=== PATIENT | female | born 1965 | race Caucasian/White ===

== ENCOUNTER 2023-01-27 13:40 | Emergency (ER) | payer OTHER, SELFPAY ==
[2023-01-27] VITALS (12 sets, daily range): BP systolic 101–127; BP diastolic 58–71; PULSE 62–79; RESP 16–29; TEMP 36.9; O2SAT 96–100; BMI 26.6
--- NOTE | 2023-01-27 14:09 | DI.CT.S_ITS ---
PROCEDURE: CT HEAD/BRAIN WO CON INDICATIONS: Hit head, syncope in triage TECHNIQUE: Noncontrast 4.5 mm thick angled axial sections acquired from the foramen magnum to the vertex, with coronal and sagittal reformats. For radiation dose reduction, the following was used: automated exposure control, adjustment of mA and/or kV according to patient size. COMPARISON: [facility], CT, CT CERVICAL SPINE WO CON, 01/27/2023, 14:22. FINDINGS: Image quality: Mild streak artifact can be seen through the skull base. CSF spaces: Basal cisterns are patent. No extra-axial fluid collections. Ventricles are normal in size and shape. Brain: No midline shift. No intracranial masses or hemorrhage. Goldman-white matter interface is normal. Skull and face: There is a scalp hematoma seen posteriorly and on the left, as on series 2, image 22. No associated calvarial fracture can be seen. Calvarium and visualized facial bones are intact, without suspicious lesions. Sinuses: Visualized sinuses and mastoids are clear. IMPRESSION: Scalp hematoma seen posteriorly and on the left, without an associated calvarial fracture. No acute intracranial hemorrhage is seen. No acute intracranial process is seen. Dictated by: John Lopez M.D. on 01/27/2023 at 13:38 Approved by: John Lopez M.D. on 01/27/2023 at 13:39
--- NOTE | 2023-01-27 14:14 | DI.CT.S_ITS ---
PROCEDURE: CT CERVICAL SPINE WO CON INDICATIONS: mechanical fall TECHNIQUE: Noncontrast 3 mm thick sections acquired from the skull base to the T4 level. Sagittal and coronal reformats were then constructed. For radiation dose reduction, the following was used: automated exposure control, adjustment of mA and/or kV according to patient size. COMPARISON: [facility], CT, CT HEAD/BRAIN WO CON, 01/27/2023, 14:22. FINDINGS: Image quality: This examination is limited by involuntary motion artifact. Bones: No fractures or dislocations. Visualized superior ribs are intact. There is overall straightening of the normal cervical lordosis. There is moderate disc space narrowing seen at C3-C4, C4-C5, C5-C6, and C6-C7. Posteriorly directed endplate osteophytes are seen, which are most prominent at the C5-C6 level. Soft tissues: Prevertebral soft tissues are normal in thickness. No paravertebral hematomas. No apical pneumothoraces. IMPRESSION: Negative for fracture. Multiple levels of cervical spine degenerative change can be seen, which are overall worst at the C5-C6 level. Dictated by: John Lopez M.D. on 01/27/2023 at 13:39 Approved by: John Lopez M.D. on 01/27/2023 at 13:40
[2023-01-27] MEDS: ACETAMINOPHEN 325 MG TABLET 975 MG PO (15:42)
--- NOTE | 2023-01-27 18:54 | ED.FALL ---
HPI - Fall General Chief Complaint: Fall Stated Complaint: fell/head injury/numbing sensation Time Seen by Provider: 01/27/23 15:06 Source: patient Mode of arrival: Ambulatory History of Present Illness HPI Narrative: Patient healthy 57-year-old healthy female presents today after mechanical fall while playing pickleball and a closed head injury. She reports that she was wearing flip-flops she reached backwards to get the ball she tripped falling backwards hitting her head. She felt like she did whiplash she has some numbness tingling in her arms which lasted for a little bit but slowly improved. At triage she apparently was hyperventilating passed out briefly. She has no fever chills chest pain shortness of breath. She is been in the ED 5 hours in his feeling significantly better. She was feeling a bit nauseous but Tylenol and Zofran helped. Related Data Previous Rx's Medication Instructions Recorded ondansetron 4 mg disintegrating 4 mg PO Q8H PRN nausea and 01/27/23 tablet vomiting #10 tabs Allergies Allergy/AdvReac Type Severity Reaction Status Date / Time morphine Allergy Verified 01/27/23 14:05 Review of Systems Review of Systems ROS Unobtainable: All systems reviewed & are unremarkable except as noted in HPI and below Patient History Social History Smoking Status: Never smoker Smoking Status: Never smoker Substance Use Type: does not use Exam Initial Vital Signs Initial Vital Signs: Vital Signs Temperature 98.5 F 01/27/23 14:05 Pulse Rate 62 01/27/23 14:05 Respiratory Rate 18 01/27/23 14:05 Blood Pressure 101/59 L 01/27/23 14:05 Pulse Oximetry 100 01/27/23 14:05 Oxygen Delivery Method Room Air 01/27/23 14:05 GENERAL: Alert pleasant 57-year-old female and in no acute distress. HEENT: Head atraumatic,EOMI, pupils reactive, face symmetric, moist mucous membranes NECK: No midline vertebral tenderness mild paraspinal muscle tenderness slightly degrees range of motion CARDIOVASCULAR: Regular rate and rhythm without murmurs, rubs or gallops. RESPIRATORY: Breath sounds equal bilaterally, no wheezes rales or rhonchi. ABDOMEN: Soft, nontender. Normoactive bowel sounds all 4 quadrants. No guarding or rebound. EXTREMITIES: Normal range of motion, no clubbing or edema. Neurovascularly intact NEUROLOGICAL: Alert and oriented x4.Normal gait and speech. Cranial nerves II through XII grossly intact. [employer] strength equal bilaterally SKIN: Warm, dry, no laceration, no petechiae, no rashes or lesions. Course Orders Ordered: Discontinued Medications Acetaminophen (Acetaminophen 325 Mg Tablet) 975 mg PO NOW ONE Stop: 01/27/23 15:24 Last Admin: 01/27/23 15:42 Dose: 975 mg Documented By: ISAIAS Ondansetron HCl (Ondansetron 4 Mg Odt) 4 mg PO NOW ONE Stop: 01/27/23 14:16 Last Admin: 01/27/23 15:23 Dose: Not Given Documented By: SADE Ondansetron HCl (Ondansetron 4 Mg Odt Prepack) 1 bottle MISC SEEINSTR ONE Stop: 01/27/23 19:03 Last Admin: 01/27/23 19:18 Dose: 1 bottle Documented By: EMMA Vital Signs Vital signs: Vital Signs - 8 hr 01/27/23 18:30 01/27/23 18:30 01/27/23 19:00 Pulse Rate 72 65 Respiratory Rate 18 22 Blood Pressure 116/71 Pulse Oximetry 99 99 Oxygen Delivery Method Room Air Room Air 01/27/23 19:00 Pulse Rate Respiratory Rate Blood Pressure 127/69 Pulse Oximetry Oxygen Delivery Method MDM - Fall Imaging Data CT - cervical spine: Radiologist's Impression: PROCEDURE: CT CERVICAL SPINE WO CON INDICATIONS: mechanical fall TECHNIQUE: Noncontrast 3 mm thick sections acquired from the skull base to the T4 level. Sagittal and coronal reformats were then constructed. For radiation dose reduction, the following was used: automated exposure control, adjustment of mA and/or kV according to patient size. COMPARISON: [facility], CT, CT HEAD/BRAIN WO CON, 01/27/2023, 14:22. FINDINGS: Image quality: This examination is limited by involuntary motion artifact. Bones: No fractures or dislocations. Visualized superior ribs are intact. There is overall straightening of the normal cervical lordosis. There is moderate disc space narrowing seen at C3-C4, C4-C5, C5-C6, and C6-C7. Posteriorly directed endplate osteophytes are seen, which are most prominent at the C5-C6 level. Soft tissues: Prevertebral soft tissues are normal in thickness. No paravertebral hematomas. No apical pneumothoraces. IMPRESSION: Negative for fracture. Multiple levels of cervical spine degenerative change can be seen, which are overall worst at the C5-C6 level. Dictated by: John Lopez M.D. on 01/27/2023 at 13:39 CT scan - head: Radiologist's Impression: PROCEDURE: CT HEAD/BRAIN WO CON INDICATIONS: Hit head, syncope in triage TECHNIQUE: Noncontrast 4.5 mm thick angled axial sections acquired from the foramen magnum to the vertex, with coronal and sagittal reformats. For radiation dose reduction, the following was used: automated exposure control, adjustment of mA and/or kV according to patient size. COMPARISON: [facility], CT, CT CERVICAL SPINE WO CON, 01/27/2023, 14:22. FINDINGS: Image quality: Mild streak artifact can be seen through the skull base. CSF spaces: Basal cisterns are patent. No extra-axial fluid collections. Ventricles are normal in size and shape. Brain: No midline shift. No intracranial masses or hemorrhage. Goldman-white matter interface is normal. Skull and face: There is a scalp hematoma seen posteriorly and on the left, as on series 2, image 22. No associated calvarial fracture can be seen. Calvarium and visualized facial bones are intact, without suspicious lesions. Sinuses: Visualized sinuses and mastoids are clear. IMPRESSION: Scalp hematoma seen posteriorly and on the left, without an associated calvarial fracture. No acute intracranial hemorrhage is seen. No acute intracranial process is seen. Dictated by: John Lopez M.D. on 01/27/2023 at 13:38 ECG Data Interpretation: Sinus rhythm rate 63 [place] interval 172 QRS 86 QTC [address] changes priors to compare MDM Narrative Medical decision making narrative: Patient presents as a mechanical ground level fall with closed head injury. In triage it sounds like she would a vasovagal reaction was hyperventilating. She was not having no other symptoms prior. EKG done and is normal periods imaging head and cervical spine are reviewed and negative. At this time likely diagnosis closed head injury and mild concussion Discharge Plan Departure Patient Disposition: Home Clinical Impression: Closed head injury Instructions: Whiplash, Concussion Activity Restrictions/Additional Instructions: *You have been diagnosed with closed head injury with black *What to do: At this time expect to be sore for the next couple of days increase activity as tolerated. Okay to sleep. *Continue to take medications as directed Tylenol or ibuprofen as directed if needed for pain Zofran 4 mg every 8 hours if needed for nausea or vomit *Follow up with your primary care provider in 2-3 days or call [phone] *Return to ER if you should have persistent vomiting worsening headache numbness tingling weakness or any new, worsening or concerning symptoms Prescriptions: New ondansetron 4 mg tablet,disintegrating 4 mg PO Q8H PRN (Reason: nausea and vomiting) Qty: 10 0RF Referrals: Claudia Parekh DO [Primary Care Provider] - Stand Alone Forms: Patient Portal/API
[2023-01-27] MEDS: ONDANSETRON 4 MG ODT PREPACK 1 BOTTLE MISC (19:18)
--- NOTE | 2023-01-27 19:38 | PC.NURSE ---
1405- Post triage pt co diziness and nausea and stated she felt really weird pt then had a syncopal episode lasting aproximately 45 seconds. Pt then came to and was able to stand an pivot to and then placed in room 10. Provider and charge notified.
== END 2023-01-27 19:29 | disposition home or self-care (01) ==
PROVIDERS: Emergency Provider Emergency Medicine; PCP Family Medicine
DX: S09.90XA Unspecified injury of head, initial encounter (principal); W01.0XXA Fall on same level from slipping, tripping and stumbling without subsequent striking against object, initial encounter
CPT/HCPCS: 70450; 72125; 93005; 99284